=== PATIENT | female | born 1990 | race Hispanic/Latino ===

== ENCOUNTER 2024-05-08 15:24 | Emergency (ER) | payer SELFPAY ==
[~2024-05-08] VITALS: Ht 160 cm; Wt 81.6 kg
[2024-05-08] MEDS: ketOROlac 60 MG VIAL (30MG/ML) IM ONE (17:57)
[2024-05-08 18:31] VITALS: BP 116/50; PULSE 80; RESP 20; TEMP 98.4; O2SAT 98
[2024-05-08] MEDS ORDERED: CYCL-309 PO (18:38)
[2024-05-08] MEDS ORDERED: IBUP-2070 PO (18:38)
== END 2024-05-08 18:46 | disposition home or self-care (01) ==
LOC: EDH 15:24
DX: S13.4XXA Sprain of ligaments of cervical spine, initial encounter (principal); V89.2XXA Person injured in unspecified motor-vehicle accident, traffic, initial encounter; Y93.89 Activity, other specified; Y92.488 Other paved roadways as the place of occurrence of the external cause; Y99.8 Other external cause status
CPT/HCPCS: 99285; 72125; 81025; 96372; J1885